=== PATIENT | female | born 1960 | race Caucasian/White ===

== ENCOUNTER 2020-05-23 12:28 | Inpatient (IN) ==
[2020-05-23] MEDS ORDERED: BENADRYL INJ 50 MG VIAL IV ONE (22:08)
[2020-05-23] MEDS ORDERED: TYLENOL 325 MG TAB PO ONE (22:08)
[2020-05-23 22:50] LABS: BASOPHILS # (AUTO) 0.1 X10^3/uL (0.0-0.1); BASOPHILS % (AUTO) 1.4 % (0.2-1.0); EOSINOPHILS # (AUTO) 0.1 x10^3/uL (0.0-0.2); EOSINOPHILS % (AUTO) 3.2 % (0.9-2.9); HEMATOCRIT 20.5 % (36.0-47.0); LYMPHOCYTES # (AUTO) 0.8 X10^3/uL (1.3-2.9); LYMPHOCYTES % (AUTO) 20.3 % (21.0-51.0); MEAN CORPUSCULAR HGB CONC 33.2 g/dL (33.0-35.0); MEAN CORPUSCULAR VOLUME 84.4 fL (80.0-100.0); MEAN PLATELET VOLUME 7.8 fL (7.4-11.0); MONOCYTES # (AUTO) 0.3 x10^3/uL (0.3-0.8); MONOCYTES % (AUTO) 7.8 % (0.0-13.0); NEUTROPHILS # (AUTO) 2.7 x10^3/uL (2.2-4.8); NEUTROPHILS % (AUTO) 67.3 % (42.0-75.0); PLATELET COUNT 105 X10^3/uL (150.0-450.0); RED BLOOD COUNT 2.43 X10^6/uL (3.5-5.4); RED CELL DISTRIBUTION WIDTH 18.7 % (11.6-16.5)
[2020-05-23 22:57] LABS: HEMOGLOBIN 6.8 g/dL (12.0-16.0)
[2020-05-23] MEDS ORDERED: NS 1000 ML 1,000 ML ONE (23:18)
[2020-05-23 23:27] LABS: ALANINE AMINOTRANSFERASE 14 Units/L (12-78); ALBUMIN 2.5 g/dL (3.4-5.0); ALKALINE PHOSPHATASE 108 Units/L (46-116); ASPARTATE AMINO TRANSFERASE 15 Units/L (15-37); BLOOD UREA NITROGEN 27 mg/dL (7-18); CALCIUM 8.5 mg/dL (8.5-10.1); CARBON DIOXIDE 30.2 mmol/L (21-32); CHLORIDE 104 mmol/L (98-107); COR CA(FOR HYPOALB) 9.7 mg/dL (8.5-10.1); COR NA(FOR HYPERGLY) 141 mmol/L (136-145); CREATININE 1.89 mg/dL (0.55-1.02); FREE T4 (FREE THYROXINE) 0.51 ng/dL (0.76-1.46); SODIUM 141 mmol/L (136-145); TSH (3RD GENERATION) 2.605 uIU/mL (0.358-3.74); eGFR NON BLACK RACES 29 (>60)
[2020-05-23] MEDS: NS 1000 ML 1,000 ML IV SCH (23:30)
[2020-05-24 00:44] VITALS: BMI 36.2
[2020-05-24] MEDS ORDERED: DUONEB 0.5 MG/3 MG (3 mL) NEB ONE (04:40)
[2020-05-24] MEDS: DUONEB 0.5 MG/3 MG (3 mL) NEB SCH ×3 (05:00→22:05)
[2020-05-24 06:56] LABS: CARBON DIOXIDE 26.7 mmol/L (21-32); CREATININE 1.87 mg/dL (0.55-1.02)
[2020-05-24 07:21] LABS: BASOPHILS % (AUTO) 0.4 % (0.2-1.0); EOSINOPHILS # (AUTO) 0.1 x10^3/uL (0.0-0.2); EOSINOPHILS % (AUTO) 3.4 % (0.9-2.9); HEMATOCRIT 20.2 % (36.0-47.0); LYMPHOCYTES # (AUTO) 0.7 X10^3/uL (1.3-2.9); LYMPHOCYTES % (AUTO) 18.3 % (21.0-51.0); MEAN CORPUSCULAR HEMOGLOBIN 28.3 pg (27.0-34.0); MEAN CORPUSCULAR HGB CONC 32.7 g/dL (33.0-35.0); MEAN CORPUSCULAR VOLUME 86.7 fL (80.0-100.0); MEAN PLATELET VOLUME 8.4 fL (7.4-11.0); MONOCYTES # (AUTO) 0.3 x10^3/uL (0.3-0.8); MONOCYTES % (AUTO) 7.7 % (0.0-13.0); NEUTROPHILS # (AUTO) 2.6 x10^3/uL (2.2-4.8); NEUTROPHILS % (AUTO) 70.2 % (42.0-75.0); PLATELET COUNT 91 X10^3/uL (150.0-450.0); RED BLOOD COUNT 2.33 X10^6/uL (3.5-5.4); RED CELL DISTRIBUTION WIDTH 18.8 % (11.6-16.5); WHITE BLOOD COUNT 3.7 X10^3/uL (3.6-10.0)
[2020-05-24 07:27] LABS: HEMOGLOBIN 6.6 g/dL (12.0-16.0)
--- NOTE | 2020-05-24 07:43 | RAD ---
HISTORYSOBSTUDYCHEST, 1 VIEWCOMPARISONPortable chest 02/16/2020FINDINGSThe trachea is midline. The cardiac silhouette is enlarged but stable. There is been improvement in the vascular congestion and interstitial edema compared to the film of February 16, 2020. The lungs are clear without focal infiltrate or effusion. The bony thorax is unremarkable.IMPRESSIONPersistent cardiomegaly but vascular congestion and interstitial edema have improved significantly since February 16, 2020.Electronically signed by: GIANLUCA GILL (May 24, 2020 07:42:00)
[2020-05-24] MEDS: PULMICORT NEB TX 0.5 MG NEB SCH ×2 (09:20→22:05)
[2020-05-24 09:38] LABS: BILIRUBIN,URINE NEGATIVE (NEGATIVE); BLOOD/HEMOGLOBIN,URINE 1+ (NEGATIVE); GLUCOSE, URINE NEGATIVE (NEGATIVE); KETONES,URINE NEGATIVE (NEGATIVE); LEUKOCYTE ESTERASE ,URINE NEGATIVE (NEGATIVE); NITRITES,URINE NEGATIVE (NEGATIVE); PROTEIN,URINE 3+ (NEGATIVE); UROBILINOGEN,URINE NORMAL (NORMAL)
[2020-05-24 09:47] LABS: AMORPHOUS SEDIMENT,UR 1+ /HPF (NEGATIVE); APPEARANCE,URINE CLEAR (CLEAR); BACTERIA,URINE TRACE /HPF (NEGATIVE); COLOR,URINE YELLOW (YELLOW); SQUAMOUS EPITHELIAL CELL,UR RARE /HPF (NEGATIVE)
[2020-05-24] MEDS: HumuLIN R SC PRN (11:53)
[2020-05-24] MEDS ORDERED: LYRICA CAP 75 mg PO SCH (12:00)
[2020-05-24] MEDS: LYRICA CAP 75 mg PO SCH ×2 (13:12→21:07)
[2020-05-24] MEDS: COLACE CAP 100 MG PO SCH (13:23)
[2020-05-24] MEDS: COREG TAB 6.25 MG PO SCH ×2 (13:23→21:07)
[2020-05-24] MEDS: NS 1000 ML 1,000 ML IV SCH (13:23)
[2020-05-24] MEDS ORDERED: ULTRAM PO PRN (13:26)
--- NOTE | 2020-05-24 13:42 | DR.H&P ---
H&P - History & Physical for Day of: H&P Date: 05/23/20 - Chief Complaint Chief Complaint: PRATER, WEAKNESS, COVID 19+ - History of Present Illness History of Present Illness: PT IS 60 WF ADMITTED FROM [facility] WITH WEAKNESS, SYMPTOMATIC ANEMIA AND COVID 19 WITH COPD EXACERBATION. PT HAS PMH OF HTN, DM, ANEMIA, CRF, ELIANA, COPD. PT WEARS SUPPLEMENTAL O2. PT HIS UNDER THE CARE OF DR CUCA MARTIN FOR PROCRIT INJECTIONS FOR ANEMIA OF CHRONIC DISEASE. - Past Medical History Past Medical History: Anxiety, Arthritis, Cirrhosis, Coronary Artery Disease, Dialysis, GERD, Hypertension - Social History Does patient currently use any type of tobacco product: No Have you used tobacco products in the last 12 months: No Type of Tobacco Use: None Alcohol Use: None Drug Use: None - Medications Home Medications: mirtazapine [From Remeron] Allergy (Verified 05/24/20 00:17) haloperidol [From Haldol] Adverse Reaction (Verified 05/24/20 00:17) CONTINUE taking the following medications aspirin [Ecotrin Low Strength] 81 mg PO DAILY 05/24/20 [History] atorvastatin 40 mg PO HS 05/24/20 [History] carvedilol 6.25 mg PO BID 05/24/20 [History] docusate sodium [Colace] 100 mg PO DAILY 05/24/20 [History] escitalopram oxalate 5 mg PO DAILY 05/24/20 [History] ferrous sulfate 325 mg PO BID 05/24/20 [History] folic acid 1 mg PO DAILY 05/24/20 [History] furosemide 20 mg PO DAILY 05/24/20 [History] hydrochlorothiazide 25 mg PO DAILY 05/24/20 [History] magnesium oxide 400 mg PO DAILY 05/24/20 [History] pregabalin [Lyrica] 75 mg PO BID 05/24/20 [History] quetiapine 200 mg PO BID 05/24/20 [History] - Review of Systems Constitutional: Weakness Eyes: No Symptoms Reported ENT: No Symptoms Reported Respiratory: Shortness of Breath Cardiovascular: No Symptoms Reported Gastrointestinal: Nausea Genitourinary: No Symptoms Reported Musculoskeletal: No Symptoms Reported Skin: No Symptoms Reported Neurological: No Symptoms Reported - Physical Exam Vital Signs: Temperature 98.1 F Pulse Rate [Left Brachial] 90 Pulse Rate 85 Respiratory Rate 20 Blood Pressure [Left Arm] 136/84 Blood Pressure 143/96 O2 Sat by Pulse Oximetry 96 Oriented: Normal Eyes: Normal Ear: Normal Nose: Normal Throat: Normal Respiratory: Diminished Throughout Cardiovascular: Normal : Normal Auscultation: Bowel Sounds: Normal Tenderness: Normal Skin: Decreased Turgur Musculoskeletal: Normal Psychiatric: Anxiety Mood Description: Anxious Speech Pattern: Clear, Appropriate, Excessive - Assessment/Plan (1) SOB (shortness of breath) Status: Acute Plan: ADMIT, TYPE CROSS MATCH, TRANSFUSE 1 UNIT PRBC LESS THAN 7. STOOL STUDIES, CXR ON ADMISSION. VERIFY AND RESUME HOME MEDICATION. BS AND BP CONTROL, RESP THERAPY, SUPPLEMENTAL O2. ISOLATION PRECAUTIONS (2) Anemia Status: Acute (3) COVID-19 Status: Acute (4) Chronic renal disease Status: Acute (5) Hypertension Status: Acute - Allergies Allergies/Adverse Reactions: Allergies Allergy/AdvReac Type Severity Reaction Status Date / Time mirtazapine [From Remeron] Allergy Verified 05/24/20 00:17 haloperidol [From Haldol] AdvReac Verified 05/24/20 00:17
[2020-05-24] MEDS: ULTRAM PO PRN ×2 (14:27→21:08)
[2020-05-24] MEDS: HEMOCYTE-PLUS PO SCH (21:07)
[2020-05-24] MEDS: LIPITOR TAB 40 MG PO SCH (21:08)
[2020-05-25] MEDS: ULTRAM PO PRN ×2 (03:00→17:35)
[2020-05-25] MEDS: NS 1000 ML 1,000 ML IV SCH (04:00)
[2020-05-25 05:34] LABS: CALCIUM 8.4 mg/dL (8.5-10.1); CARBON DIOXIDE 29.4 mmol/L (21-32); CREATININE 1.83 mg/dL (0.55-1.02)
[2020-05-25 05:54] LABS: ABG ALLEN TEST POS
[2020-05-25 05:59] LABS: BASOPHILS % (AUTO) 0.2 % (0.2-1.0); EOSINOPHILS # (AUTO) 0.1 x10^3/uL (0.0-0.2); EOSINOPHILS % (AUTO) 2.1 % (0.9-2.9); HEMATOCRIT 22.5 % (36.0-47.0); HEMOGLOBIN 7.4 g/dL (12.0-16.0); LYMPHOCYTES # (AUTO) 0.6 X10^3/uL (1.3-2.9); LYMPHOCYTES % (AUTO) 11.2 % (21.0-51.0); MEAN CORPUSCULAR HEMOGLOBIN 29.1 pg (27.0-34.0); MEAN CORPUSCULAR VOLUME 88.2 fL (80.0-100.0); MEAN PLATELET VOLUME 8.4 fL (7.4-11.0); MONOCYTES # (AUTO) 0.4 x10^3/uL (0.3-0.8); MONOCYTES % (AUTO) 7.4 % (0.0-13.0); NEUTROPHILS # (AUTO) 3.9 x10^3/uL (2.2-4.8); NEUTROPHILS % (AUTO) 79.1 % (42.0-75.0); PLATELET COUNT 83 X10^3/uL (150.0-450.0); RED BLOOD COUNT 2.55 X10^6/uL (3.5-5.4); RED CELL DISTRIBUTION WIDTH 18.7 % (11.6-16.5)
--- NOTE | 2020-05-25 06:13 | RAD ---
HISTORYCOPD CHFSTUDYAP [id number]/18/2020FINDINGSSimilar unchanged cardiac enlargement. Recurrence of pulmonary congestion and diffuse confluent airspace disease asymmetrically distributed, right greater than left. There is no evidence for large pleural effusion or extrapulmonary air.IMPRESSIONStable cardiomegaly. Increasing congestion and pulmonary edema, right lung greater than left. No segmental or lobar pneumonia is demonstrated.Electronically signed by: JOHNNIE KUMAR (May 25, 2020 06:11:55)
[2020-05-25 06:41] LABS: PLATELET MORPHOLOGY COMMENT NORMAL (NORMAL)
[2020-05-25] MEDS ORDERED: LEXAPRO ONE (08:31)
[2020-05-25] MEDS: COLACE CAP 100 MG PO SCH (09:13)
[2020-05-25] MEDS: ASPIRIN EC 81 MG PO SCH (09:14)
[2020-05-25] MEDS: COREG TAB 6.25 MG PO SCH ×2 (09:14→21:25)
[2020-05-25] MEDS: LYRICA CAP 75 mg PO SCH ×2 (09:15→21:25)
[2020-05-25] MEDS: LEXAPRO PO SCH (09:16)
[2020-05-25] MEDS: HEMOCYTE-PLUS PO SCH ×2 (09:16→21:25)
[2020-05-25] MEDS: FOLIC ACID TAB 1 MG PO SCH (09:17)
[2020-05-25] MEDS: DUONEB 0.5 MG/3 MG (3 mL) NEB SCH ×2 (09:30→21:08)
[2020-05-25] MEDS: PULMICORT NEB TX 0.5 MG NEB SCH ×2 (09:30→21:08)
[2020-05-25] MEDS ORDERED: LASIX IVP ONE (10:40)
[2020-05-25] MEDS: HumuLIN R SC PRN (16:55)
[2020-05-25] MEDS: LIPITOR TAB 40 MG PO SCH (21:25)
[2020-05-26 03:04] LABS: IRON 57 ug/dL (50-175)
[2020-05-26] MEDS: NS 1000 ML 1,000 ML IV SCH ×4 (05:27→21:54)
[2020-05-26 05:35] LABS: BASOPHILS % (AUTO) 0.3 % (0.2-1.0); EOSINOPHILS # (AUTO) 0.1 x10^3/uL (0.0-0.2); EOSINOPHILS % (AUTO) 1.9 % (0.9-2.9); LYMPHOCYTES # (AUTO) 0.7 X10^3/uL (1.3-2.9); LYMPHOCYTES % (AUTO) 13.4 % (21.0-51.0); MEAN CORPUSCULAR HEMOGLOBIN 28.9 pg (27.0-34.0); MEAN CORPUSCULAR HGB CONC 33.6 g/dL (33.0-35.0); MEAN CORPUSCULAR VOLUME 86.1 fL (80.0-100.0); MEAN PLATELET VOLUME 8.7 fL (7.4-11.0); MONOCYTES # (AUTO) 0.3 x10^3/uL (0.3-0.8); MONOCYTES % (AUTO) 6.7 % (0.0-13.0); NEUTROPHILS % (AUTO) 77.7 % (42.0-75.0); PLATELET COUNT 80 X10^3/uL (150.0-450.0); RED BLOOD COUNT 2.23 X10^6/uL (3.5-5.4); RED CELL DISTRIBUTION WIDTH 19.1 % (11.6-16.5); WHITE BLOOD COUNT 5.1 X10^3/uL (3.6-10.0)
[2020-05-26 05:37] LABS: CALCIUM 8.2 mg/dL (8.5-10.1); CARBON DIOXIDE 30.4 mmol/L (21-32); CREATININE 1.72 mg/dL (0.55-1.02)
[2020-05-26 06:15] LABS: HEMATOCRIT 19.2 % (36.0-47.0); HEMOGLOBIN 6.5 g/dL (12.0-16.0)
[2020-05-26] MEDS ORDERED: LEXAPRO ONE (09:21)
[2020-05-26] MEDS: ASPIRIN EC 81 MG PO SCH (10:06)
[2020-05-26] MEDS: COLACE CAP 100 MG PO SCH (10:06)
[2020-05-26] MEDS: HEMOCYTE-PLUS PO SCH ×2 (10:07→21:20)
[2020-05-26] MEDS: FOLIC ACID TAB 1 MG PO SCH (10:07)
[2020-05-26] MEDS: LEXAPRO PO SCH (10:07)
[2020-05-26] MEDS: LYRICA CAP 75 mg PO SCH ×2 (10:08→21:20)
[2020-05-26] MEDS: PULMICORT NEB TX 0.5 MG NEB SCH ×2 (10:45→21:30)
[2020-05-26] MEDS: DUONEB 0.5 MG/3 MG (3 mL) NEB SCH ×2 (10:45→21:30)
[2020-05-26] MEDS: COREG TAB 6.25 MG PO SCH ×3 (11:11→21:20)
--- NOTE | 2020-05-26 12:17 | RAD ---
HISTORYenemia. copd, chfSTUDYCHEST, 1 [id number]/19/2020FINDINGSCardiomegaly. Interval improvement in pulmonary vascularity. Interval improvement in aeration of the right upper lobe. Persistent opacities in the lung bases. Possible sm all left pleural effusion. No blunting of the right costophrenic angle. Partial visualization of righ t humeral fracture with bony callus formation.IMPRESSIONInterval improvement in pulmonary vascularity and improved aeration of the right upper lobe. Persistent bibasilar opacities.Right humeral fracture with bony callus formation which should be correlated clinically.Electronically signed by: Franky stover (May 26, 2020 12:15:43)
[2020-05-26] MEDS: ZITHROMAX INJ 500 MG VIAL 500 MG in NS 250 ML IV 250 ML IV SCH (12:21)
[2020-05-26] MEDS ORDERED: NS 500 ML IV 500 ML IV ONE (18:30)
[2020-05-26] MEDS: LIPITOR TAB 40 MG PO SCH (21:20)
[2020-05-26] MEDS ORDERED: PULMICORT NEB TX 0.5 MG NEB ONE (21:39)
[2020-05-26] MEDS ORDERED: DUONEB 0.5 MG/3 MG (3 mL) NEB ONE (21:39)
[2020-05-26] MEDS: HumuLIN R SC PRN (21:56)
[2020-05-26] MEDS ORDERED: VISTARIL PO PRN (22:23)
[2020-05-26] MEDS: LASIX IVP SCH (22:50)
[2020-05-26 23:39] LABS: BILIRUBIN,URINE NEGATIVE (NEGATIVE); BLOOD/HEMOGLOBIN,URINE 3+ (NEGATIVE); GLUCOSE, URINE 2+ (NEGATIVE); KETONES,URINE NEGATIVE (NEGATIVE); LEUKOCYTE ESTERASE ,URINE 3+ (NEGATIVE); NITRITES,URINE NEGATIVE (NEGATIVE); PROTEIN,URINE 3+ (NEGATIVE); UROBILINOGEN,URINE NORMAL (NORMAL)
[2020-05-26 23:47] LABS: APPEARANCE,URINE CLOUDY (CLEAR); BACTERIA,URINE NEGATIVE /HPF (NEGATIVE); COLOR,URINE YELLOW (YELLOW); SQUAMOUS EPITHELIAL CELL,UR FEW /HPF (NEGATIVE); TRANSITIONAL EPI CELLS,URINE FEW /HPF (NEGATIVE)
[2020-05-27] MEDS: ULTRAM PO PRN (01:35)
[2020-05-27 04:58] LABS: ABG ALLEN TEST POS; ABG BASE EXCESS 5.8 mmol/L (-2.0-2.0); ABG HCO3 32.8 mmol/L (22-26)
[2020-05-27 06:59] LABS: BASOPHILS % (AUTO) 0.4 % (0.2-1.0); EOSINOPHILS # (AUTO) 0.2 x10^3/uL (0.0-0.2); EOSINOPHILS % (AUTO) 3.3 % (0.9-2.9); HEMOGLOBIN 9.5 g/dL (12.0-16.0); LYMPHOCYTES # (AUTO) 0.7 X10^3/uL (1.3-2.9); LYMPHOCYTES % (AUTO) 13.7 % (21.0-51.0); MEAN CORPUSCULAR HEMOGLOBIN 29.4 pg (27.0-34.0); MEAN CORPUSCULAR HGB CONC 33.8 g/dL (33.0-35.0); MEAN CORPUSCULAR VOLUME 86.8 fL (80.0-100.0); MEAN PLATELET VOLUME 8.6 fL (7.4-11.0); MONOCYTES # (AUTO) 0.4 x10^3/uL (0.3-0.8); MONOCYTES % (AUTO) 8.5 % (0.0-13.0); NEUTROPHILS # (AUTO) 3.7 x10^3/uL (2.2-4.8); NEUTROPHILS % (AUTO) 74.1 % (42.0-75.0); PLATELET COUNT 84 X10^3/uL (150.0-450.0); RED BLOOD COUNT 3.23 X10^6/uL (3.5-5.4); RED CELL DISTRIBUTION WIDTH 18.7 % (11.6-16.5)
[2020-05-27 07:00] LABS: CALCIUM 8.4 mg/dL (8.5-10.1); CARBON DIOXIDE 29.7 mmol/L (21-32); CREATININE 1.69 mg/dL (0.55-1.02)
[2020-05-27] MEDS: LASIX IVP SCH ×2 (07:10→10:06)
[2020-05-27] MEDS ORDERED: LEXAPRO ONE (09:27)
[2020-05-27] MEDS: DUONEB 0.5 MG/3 MG (3 mL) NEB SCH (09:50)
[2020-05-27] MEDS: PULMICORT NEB TX 0.5 MG NEB SCH (09:50)
[2020-05-27] MEDS: ASPIRIN EC 81 MG PO SCH (10:00)
[2020-05-27] MEDS: COLACE CAP 100 MG PO SCH (10:01)
[2020-05-27] MEDS: FOLIC ACID TAB 1 MG PO SCH (10:01)
[2020-05-27] MEDS: COREG TAB 6.25 MG PO SCH (10:01)
[2020-05-27] MEDS: LEXAPRO PO SCH (10:03)
[2020-05-27] MEDS: HEMOCYTE-PLUS PO SCH (10:04)
[2020-05-27] MEDS: ZITHROMAX INJ 500 MG VIAL 500 MG in NS 250 ML IV 250 ML IV SCH (10:04)
[2020-05-27] MEDS: LYRICA CAP 75 mg PO SCH (10:04)
--- NOTE | 2020-05-27 10:20 | RAD ---
HISTORYCOPDSTUDYChest AP [id number]/20/2020FINDINGSPatient is rotated to the left. The heart remains enlarged. No de finite congestive heart failure identified. No definite acute alveolar infiltrates or pleural effusio ns are identified. Bony thorax is unremarkable.IMPRESSIONCardiomegaly without congestive heart failur e, unchangedNo definite infiltratesElectronically signed by: BRIDGET EDOUARD (May 27, 2020 10:17:26)
[2020-05-27 14:15] LABS: ABG BASE EXCESS 6.1 mmol/L (-2.0-2.0)
[2020-05-27 15:27] VITALS: BP 129/53
== END 2020-05-27 18:00 | DRG 811 ==
LOC: MED/SURG 21:57 → ICU 05-26 21:31
PROVIDERS: ADMIT Internal Medicine; ATTEND Internal Medicine
DX: R79.89 Other specified abnormal findings of blood chemistry; D64.89 Other specified anemias; N18.9 Chronic kidney disease, unspecified; E11.65 Type 2 diabetes mellitus with hyperglycemia; I50.9 Heart failure, unspecified; I25.10 Atherosclerotic heart disease of native coronary artery without angina pectoris; J44.1 Chronic obstructive pulmonary disease with (acute) exacerbation; Z99.81 Dependence on supplemental oxygen; R06.02 Shortness of breath; R53.1 Weakness; U07.1 COVID-19; I11.0 Hypertensive heart disease with heart failure